=== PATIENT | male | born 1960 | race Caucasian/White ===

== ENCOUNTER 2020-05-22 11:09 | Emergency (ER) | payer OTHER ==
[~2020-05-22] VITALS: Ht 172.7 cm; Wt 95.3 kg
[2020-05-22 11:11] VITALS: Ht 172.7 cm; Wt 95.3 kg
[2020-05-22 12:50] VITALS: BP 108/75
== END 2020-05-22 12:50 | disposition home or self-care (01) ==
LOC: ED 11:09
DX: U07.1 COVID-19 (principal); I10 Essential (primary) hypertension
CPT/HCPCS: 83880; 85378; 87804; Q0092; U0003-CS